=== PATIENT | male | born 1980 | race Caucasian/White ===

== ENCOUNTER 2018-11-12 20:37 | Emergency (ER) | payer SELFPAY ==
[~2018-11-12] VITALS: Ht 188 cm; Wt 102.9 kg
[2018-11-12 20:39] VITALS: BP 136/103; PULSE 81; RESP 18; Ht 188 cm; Wt 102.9 kg
[2018-11-12] MEDS ORDERED: DIPHTH/TET/ACEL PERTUSS (ADULT) 0.5 ML VIAL IM* ONE (22:30)
--- NOTE | 2018-11-12 22:46 | ERD ---
ER Documentation Chief Complaint Chief Complaint LAC TO R HAND 5TH DIGIT HPI This is a 38-year-old pleasant male presents to the ED with a laceration to his right fifth finger sustained at 8 PM today. 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 Patient states the medics onset immediately cleaned the wound and he came here for further evaluation. He denies any numbness, tingling or focal weakness of his fingers her right hand. He denies any retained foreign bodies. Denies any other injuries. Does not know if his tetanus is up-to-date. He is right-hand dominant. ROS All systems reviewed and are negative except as per history of present illness. Allergies Allergies: Coded Allergies: No Known Allergy (Unverified , 11/12/18) PMhx/Soc Medical and Surgical Hx: pt denies Medical Hx, pt denies Surgical Hx History of Surgery: No Anesthesia Reaction: No Hx Neurological Disorder: No Hx Respiratory Disorders: No Hx Cardiac Disorders: No Hx Psychiatric Problems: No Hx Miscellaneous Medical Probl: No Hx Alcohol Use: No Hx Substance Use: Yes (marijuana edibles sometimes) Hx Tobacco Use: No Smoking Status: Never smoker Physical Exam Vitals Vital Signs Date Temp Pulse Resp B/P (MAP) Pulse Ox O2 O2 Flow FiO2 Time Delivery Rate 11/12/18 97.4 81 18 136/103 95 20:39 (114) Physical Exam Const: No acute distress Head: Atraumatic Eyes: Normal Conjunctiva ENT: Normal External Ears, Nose and Mouth. Neck: Full range of motion. No meningismus. Skin: Upper Extremity -right Skin: + Small non-gaping 1.5 cm to right lateral fifth digit, no active bleeding. Compartments: Soft Motor: Full active range of motion wrist/hand Sensation: Intact shoulder/pinky/middle finger/thumb web space Bones: Nontender wrist/hand Pulses/Perfusion: 2+ radial, Capillary refill < 2 seconds Neur: Awake and alert Psych: Normal Mood and Affect Results 24 hrs Current Medications Medications Dose Sig/Jacquelin Start Time Status Last (Trade) Ordered Route PRN Stop Time Admin Dose Reason Admin Diphtheria/ 0.5 ml ONCE ONCE 11/12/18 DC 11/12/18 Tetanus/Acell IM* 22:30 22:30 Pertussis 11/12/18 22:31 (Adacel) Procedures/MDM PROCEDURES: Laceration Repair by me: Anesthesia: None Location: Right fifth digit Tendon/Joint/Nerves: No injury Foreign body: None detected after copious irrigation and exploration Technique: Dermabond, Steri-Strips Complexity: No subcutaneous sutures/mucosal repair/edge excision Post Closure Length: 1.5 cm Patient's bleeding was easily controlled in the department and there is no indication of anemia. 48 hour wound check. Scar minimization instructions given. ED COURSE: The patient was given tetanus immunization update The medication was well tolerated and the patient had market improvement in symptoms. The patient remained stable throughout ED course. MEDICAL DECISION MAKIN-year-old male presents with a non-gaping, superficial laceration to his right fifth finger. His tetanus was updated here. Wound was extensively irrigated and laceration was repaired as above. No evidence of compartment syndrome, neurologic injury, vascular injury, open joint, tendon laceration, or foreign body. Patient is appropriate for outpatient follow up. Recommended wound recheck in 48 hours. Strict return precautions were discussed. PRESCRIPTIONS: None. SPECIALIST FOLLOW UP RECOMMENDED: None Patient has been advised to follow up with primary care in 1-2 days. Blood Pressure Assessment: Patient's blood pressure was elevated (>120/80) but appears stable without evidence of hypertension emergency or urgency. The patient was counseled about the risks of hypertension and urged to pursue outpatient monitoring and therapy within a week with their primary care physician. Departure Diagnosis: Primary Impression: Laceration Condition: Stable Patient Instructions: Laceration, Extremity (Skin Glue) Referrals: [facility] YOU HAVE RECEIVED A MEDICAL SCREENING EXAM AND THE RESULTS INDICATE THAT YOU DO NOT HAVE A CONDITION THAT REQUIRES URGENT TREATMENT IN THE EMERGENCY DEPARTMENT. FURTHER EVALUATION AND TREATMENT OF YOUR CONDITION CAN WAIT UNTIL YOU ARE SEEN IN YOUR DOCTORS OFFICE WITHIN THE NEXT 1-2 DAYS. IT IS YOUR RESPONSIBILITY TO MAKE AN APPOINTMENT FOR FOLOW-UP CARE. IF YOU HAVE A PRIMARY DOCTOR --you should call your primary doctor and schedule an appointment IF YOU DO NOT HAVE A PRIMARY DOCTOR YOU CAN CALL OUR PHYSICIAN REFERRAL HOTLINE AT IF YOU CAN NOT AFFORD TO SEE A PHYSICIAN YOU CAN CHOSE FROM THE FOLLOWING [facility] [address] [facility]. [facility] [address] [facility] [address] [facility] [address] [facility]. [facility] [address] [facility]. [facility]. [address] [facility]. [facility] YOU HAVE RECEIVED A MEDICAL SCREENING EXAM AND THE RESULTS INDICATE THAT YOU DO NOT HAVE A CONDITION THAT REQUIRES URGENT TREATMENT IN THE EMERGENCY DEPARTMENT. FURTHER EVALUATION AND TREATMENT OF YOUR CONDITION CAN WAIT UNTIL YOU ARE SEEN IN YOUR DOCTORS OFFICE WITHIN THE NEXT 1-2 DAYS. IT IS YOUR RESPONSIBILITY TO MAKE AN APPOINTMENT FOR FOLOW-UP CARE. IF YOU HAVE A PRIMARY DOCTOR --you should call your primary doctor and schedule and appointment IF YOU DO NOT HAVE A PRIMARY DOCTOR YOU CAN CALL OUR PHYSICIAN REFERRAL HOTLINE AT . IF YOU CAN NOT AFFORD TO SEE A PHYSICIAN YOU CAN CHOSE FROM THE FOLLOWING [facility] INSTITUTIONS: [facility] [address] [place] [address] [facility] [address] [place] [address] [facility] [address] [place] [address] Additional Instructions: Keep the wound dry do not submerge in water at least for the next few days. He can remove the strip after 2 days and the glue will remove on its own next 10 days. Monitor for any worsening pain, fevers, chills, discharge or any other symptoms. Return here if these happen. VIDA NATH PA-C Nov 12, 2018 22:46
== END 2018-11-13 00:45 | disposition home or self-care (01) ==
LOC: FTE 20:37
DX: S61.216A Laceration without foreign body of right little finger without damage to nail, initial encounter (principal); W26.8XXA Contact with other sharp object(s), not elsewhere classified, initial encounter; Y92.89 Other specified places as the place of occurrence of the external cause; Z23 Encounter for immunization
CPT/HCPCS: 90471; 90715